=== PATIENT | male | born 1990 | race Two or more races ===

== ENCOUNTER 2016-10-06 20:07 | Emergency (ER) | payer SELFPAY ==
[~2016-10-06] VITALS: Ht 177.8 cm; Wt 69.0 kg
[2016-10-06 20:10] VITALS: BP 124/71
[2016-10-06] MEDS ORDERED: DIPH,PERTUSS(ACELL),TET VAC/PF 0.5 ML IM-VACC ONE ×2 (21:10→21:30)
[2016-10-06] MEDS ORDERED: BACITRACIN ZINC OINT 500U/GM, 0.9 GM ONE (21:11)
== END 2016-10-06 21:36 | disposition home or self-care (01) ==
LOC: ED 21:30
DX: S06.0X0A Concussion without loss of consciousness, initial encounter (principal); S00.81XA Abrasion of other part of head, initial encounter; S40.811A Abrasion of right upper arm, initial encounter; S50.811A Abrasion of right forearm, initial encounter; G43.909 Migraine, unspecified, not intractable, without status migrainosus; Z23 Encounter for immunization; W50.4XXA Accidental scratch by another person, initial encounter; Y93.89 Activity, other specified; Y99.8 Other external cause status; Y92.488 Other paved roadways as the place of occurrence of the external cause
CPT/HCPCS: 70450; 90471; 90715

== ENCOUNTER 2016-10-07 15:50 | Emergency (ER) | payer SELFPAY ==
[~2016-10-07] VITALS: Ht 177.8 cm; Wt 78.7 kg
[2016-10-07 15:51] VITALS: BP 115/77
[2016-10-07] MEDS ORDERED: BACITRACIN ZINC OINT 500U/GM, 0.9 GM ONE ×2 (16:08→16:09)
[2016-10-07] MEDS ORDERED: DIPHENHYDRAMINE 50 MG/ML, 1ML ONE (16:22)
[2016-10-07] MEDS ORDERED: FAMOTIDINE 20 MG TABLET ONE (16:23)
[2016-10-07] MEDS ORDERED: FAMOTIDINE 20 MG TABLET PO ONE (16:30)
[2016-10-07] MEDS ORDERED: DIPHENHYDRAMINE 50 MG/ML, 1ML IM ONE (16:30)
== END 2016-10-07 16:45 | disposition home or self-care (01) ==
LOC: ED 16:39
DX: L50.9 Urticaria, unspecified (principal); G43.909 Migraine, unspecified, not intractable, without status migrainosus
CPT/HCPCS: 96372; 99283; J1200; J7512

== ENCOUNTER 2016-11-01 09:47 | Emergency (ER) | payer SELFPAY ==
[~2016-11-01] VITALS: Ht 177.8 cm; Wt 86.8 kg
[2016-11-01 09:49] VITALS: BP 122/70
[2016-11-01] MEDS ORDERED: HYDROcodone/APAP 5/325 TABLET PO ONE (10:30)
[2016-11-01] MEDS ORDERED: HYDROcodone/APAP 5/325 TABLET ONE (10:37)
== END 2016-11-01 10:45 | disposition home or self-care (01) ==
LOC: ED 10:30
DX: K08.89 Other specified disorders of teeth and supporting structures (principal)
CPT/HCPCS: 99283

== ENCOUNTER 2019-06-13 06:34 | Emergency (ER) | payer BC, OTHER ==
[~2019-06-13] VITALS: Ht 177.8 cm; Wt 87.8 kg
[2019-06-13 06:37] VITALS: BP 113/55
--- NOTE | 2019-06-13 07:41 | NUR ---
vascular neurologist: Pt ambulatory to ED room 04 in NAD from lobby at this time
[2019-06-13] MEDS ORDERED: KETOROLAC 30 MG/1 ML IM ONE (09:00)
--- NOTE | 2019-06-13 09:42 | NUR ---
PT DENIES NEED FOR TORADOL IM SHOT AT THIS TIME, PT PREFERS TO TAKE IBU WHEN HOME. GIVEN DC INSTRUCTIONS, ALL QUESTIONS ANSWERED
== END 2019-06-13 09:53 | disposition home or self-care (01) ==
LOC: ED 08:40
DX: K08.89 Other specified disorders of teeth and supporting structures (principal); G43.909 Migraine, unspecified, not intractable, without status migrainosus
CPT/HCPCS: 99283

== ENCOUNTER 2021-01-25 11:23 | Emergency (ER) | payer SELFPAY ==
[~2021-01-25] VITALS: Ht 177.8 cm; Wt 94.1 kg
[2021-01-25 11:33] VITALS: BP 107/71
== END 2021-01-25 12:40 | disposition left against medical advice (07) ==
LOC: ED 11:53
DX: M54.5 Low back pain (principal)
CPT/HCPCS: 99281